=== PATIENT | male | born 1955 | race Caucasian/White ===

== ENCOUNTER 2017-10-25 06:08 | Inpatient (IN) ==
--- NOTE | 2017-10-24 21:18 | Discharge Summary ---
<Hubert Soares - Last Filed: 10/25/17 07:53> Orders not resulted at time of discharge: Pending orders 10/25/17 00:01 XR shoulder complete LT [XR] Routine H/H [Hemoglobin and Hematocrit] [HEME] Routine 10/25/17 07:32 US anesthesia pain block [US] Stat Date of Encounter: 10/25/17 - Discharge Diagnosis (1) Obesity (BMI 30.0-34.9) Priority: Secondary Status: Chronic (2) Rotator cuff arthropathy of left shoulder Priority: Primary Status: Chronic (3) Status post reverse total arthroplasty of left shoulder Priority: Primary Status: Acute (4) DMII (diabetes mellitus, type 2) Priority: Secondary Status: Chronic Qualifiers: Diabetes mellitus medical terminologist insulin use: unspecified correction insulin use status Diabetes mellitus complication status: with unspecified complications Qualified Code(s): E11.8 - Type 2 diabetes mellitus with unspecified complications (5) HTN (hypertension) Priority: Secondary Status: Chronic Qualifiers: Hypertension type: essential hypertension Qualified Code(s): I10 - Essential (primary) hypertension (6) Tobacco use Priority: Secondary Status: Chronic (7) Chronic pain Priority: Secondary Status: Chronic Qualifiers: Chronic pain type: other chronic pain Qualified Code(s): G89.29 - Other chronic pain - Hospital Course Hospital course: Mr. Romero is a 62 year old male - Time Spent with Patient Total time spent providing and/or coordinating discharge services: - Discharge Medications Home Medications: Aspirin [Lo-Dose Aspirin EC] 81 mg PO DAILY 10/25/17 [History] Clopidogrel [Plavix] 75 mg PO DAILY 10/25/17 [History] Gabapentin [Neurontin] 600 mg PO TID 10/25/17 [History] Insulin ASPART [NovoLOG] 22 unit SQ TIDWM 10/25/17 [History] Insulin Degludec [Tresiba Flextouch U-100] 60 unit SQ BID 10/25/17 [History] Lisinopril [Zestril] 20 mg PO DAILY 10/25/17 [History] Oxycodone HCl/Acetaminophen [Percocet 10-325 mg Tablet] 1 each PO Q6HR 10/25/17 [History] Zolpidem [Ambien] 5 mg PO HS 10/25/17 [History] Allergies/Adverse Reactions: 3 Allergy/AdvReac Type Severity Reaction Status Date / Time Iodinated Contrast- Oral and Allergy Anaphylaxis Verified 10/25/17 06:51 IV Dye ketorolac [From Toradol] AdvReac Hives Verified 10/25/17 06:51 Primary care physician: Courtney Castellanos MD - Patient Status Disposition: Home, Self-Care Condition: Good - Discharge Instructions Follow Up With: Courtney Castellanos MD [Primary Care Provider] - <Roxane Douglas Kala - Last Filed: 10/25/17 18:23> Date of Encounter: 10/25/17 Time of Encounter: 17:38 - Discharge Diagnosis (1) Rotator cuff arthropathy of left shoulder Priority: Primary Status: Chronic (2) Status post reverse total arthroplasty of left shoulder Priority: Primary Status: Acute (3) DMII (diabetes mellitus, type 2) Priority: Secondary Status: Chronic Qualifiers: Diabetes mellitus medical terminologist insulin use: unspecified medical terminologist insulin use status Diabetes mellitus complication status: with unspecified complications Qualified Code(s): E11.8 - Type 2 diabetes mellitus with unspecified complications (4) HTN (hypertension) Priority: Secondary Status: Chronic Qualifiers: Hypertension type: essential hypertension Qualified Code(s): I10 - Essential (primary) hypertension (5) Obesity Priority: Secondary Status: Chronic Qualifiers: Obesity type: unspecified obesity type Obesity classification: unspecified obesity classification Serious obesity comorbidity presence: without serious comorbidity Qualified Code(s): E66.9 - Obesity, unspecified (6) Tobacco use Priority: Secondary Status: Chronic (7) Chronic pain Priority: Secondary Status: Chronic Comments: Patient will resume chronic pain medication - Percocet QID Qualifiers: Chronic pain type: other chronic pain Qualified Code(s): G89.29 - Other chronic pain - Hospital Course Hospital course: Mr. Romero is a 62 year old male, s/p Left TSR-reverse, history of HTN, DMII, CAD , Obesity, Chronic pain and tobacco use. Patient doing well; with uneventful post-operative course. Stable for discharge. Afebrile, vital signs stable. Labs reviewed. H/H - stable, asymptomatic Pain control: adequate - continue chronic pain medication. Participating in PT. All questions and concerns addressed. Educated on use of incentive spirometer. Encouraged ambulation and proper hydration. Patient educated on post-operative restrictions and post-operative care. Assessment and plan: Continue with postoperative care Discharge plan: Home, discharge today - Time Spent with Patient Total time spent providing and/or coordinating discharge services: Date of admission: 10/25 Primary care physician: Courtney Castellanos MD
[2017-10-25] MEDS ORDERED: Bupivacaine/Clonidine Syringe 1 EACH SYRINGE ONE (06:50)
[2017-10-25] MEDS ORDERED: ROPIVACAINE HCL/PF 0.5% 30 ML VIAL ONE (06:50)
[2017-10-25] MEDS ORDERED: Albuterol 2.5 MG/3 ML NEBULIZER IH ONE (06:52)
[2017-10-25] MEDS ORDERED: CeFAZolin Syr 2,000MG/20 ML 2,000 MG/20 ML SYRINGE IVPB ONE (06:52)
[2017-10-25] MEDS ORDERED: Albuterol 2.5 MG/3 ML NEBULIZER ONE (06:53)
--- NOTE | 2017-10-25 06:54 | History & Physical Report ---
Date of Encounter: 10/25/17 Time of Encounter: 06:53 24 Hour HP Update - Instructions Instructions: If the History and Physical is less than 30 days old and was completed prior to A.M. admission and or procedure and has NOT been updated on calendar day of procedure please complete this update prior to performing procedure. - Update Patient reports changes in Medical Condition: No Changes in examination, assessment, or condition: No Changes in Medication: No Preop tests/diagnostics Reviewed: Yes Surgery Remains Indicated: Yes Consent for Planned Operative Procedure(s) Verified: Yes - Pre-Operative Checklist Preoperative Checklist Indicated: No Prophylactic Antibiotic Ordered: Yes Is VTE Prophylaxis Indicated?: Yes
[2017-10-25] MEDS ORDERED: Ringers Solution, Lactated 1,000 ML IVC SCH ×2 (07:00→09:41)
[2017-10-25] MEDS ORDERED: Famotidine 20 MG/2 ML VIAL IVP ONE (07:06)
[2017-10-25] MEDS ORDERED: Acetaminophen IV 1,000 MG/100 ML INFUS..BTL IVPB ONE (07:07)
[2017-10-25] MEDS ORDERED: Pregabalin 75 MG CAPSULE PO ONE (07:08)
--- NOTE | 2017-10-25 07:11 | Anesthesia Evaluation PreOp ---
Date of Encounter: 10/25/17 Time of Encounter: 07:00 - Past History Planned Operation: Left Total Shoulder Reverse Ball Cardiac History: [place] (2003), HTN, Hyperlipidemia, Cardiac Stent (2003) Pulmonary History: Smoker JOINT FILLER History: Denies Any Significant HX Other Medical History: Diabetes Type II (Accu check 154) Anesthesia History: No Prior Anesthetic Complications Alcohol Use: none Drug use: none Medications and Allergies Aspirin [Lo-Dose Aspirin EC] 81 mg PO DAILY 10/25/17 [History] Clopidogrel [Plavix] 75 mg PO DAILY 10/25/17 [History] Insulin ASPART [NovoLOG] unit SQ 10/25/17 [History] Insulin Degludec [Tresiba Flextouch U-100] 60 unit SQ DAILY 10/25/17 [History] Lisinopril [Zestril] 20 mg PO DAILY 10/25/17 [History] Oxycodone HCl/Acetaminophen [Percocet 10-325 mg Tablet] 1 each PO Q6HR 10/25/17 [History] Zolpidem [Ambien] 5 mg PO HS 10/25/17 [History] 3 Allergy/AdvReac Type Severity Reaction Status Date / Time Iodinated Contrast- Oral and Allergy Anaphylaxis Verified 10/25/17 06:51 IV Dye ketorolac [From Toradol] AdvReac Hives Verified 10/25/17 06:51 - Meds/Allergy Pre-op Review Medications Reviewed: Yes Allergies Reviewed: Yes Beta Blockers on Current Med List: No Anesthesia Results - Labs Hgb 15.2 Hct 43.9 Plt 243 Na 141 K 4.4 BUN 13 Creat 1.0 - Imaging EKG: report reviewed (SB) Additional studies: 2011 Heart Cath Normal EF Anesthesia Exam O2 Sat Height 1.78 m Height 1.78 m Height 1.78 m Weight 105.233 kg Weight 105.233 kg Weight 105.233 kg O2 Sat by Pulse Oximetry 97 Vital Signs Temp Pulse Resp BP Pulse Ox 97.9 F 57 18 138/86 97 10/25/17 06:28 10/25/17 06:28 10/25/17 06:28 10/25/17 06:28 10/25/17 06:28 Height: 5'10 Weight: 232 lbs NPO (# of Hours): MN Pain Scale: 2 - HEENT Pupil (Motor): Pupils equal, EOMI Mallampati: III Teeth: Edentulous Oral Opening: Less than or equal to 3 - JOINT FILLER LOC: Oriented JOINT FILLER Motor: Normal RUE, Normal LUE, Normal RLE, Normal LLE, Normal Face JOINT FILLER Sensory: Normal: RUE, LUE, RLE, LLE, Face - Cardiac Rhythm: Regular Murmur: None JVD: No Carotid Bruit: No - Pulmonary Breath Sounds: bilateral Clear Respiratory Effort: Symmetrical Anesthesia Assess/Plan ASA Score: 3 (CAD HTN Tobacco DM) Modified [place] Scale for Level of Consciousness: Cooperative, oriented, and tranquil Anesthetic Plan: General, Regional Monitoring Plan: Standard Monitors Recovery Plan: PACU (Discussed GA and RA, agrees to proceed)
[2017-10-25] MEDS ORDERED: Tetracaine/PF 20 MG/2 ML AMPUL ONE (07:18)
[2017-10-25] MEDS ORDERED: Lidocaine -MPF 2% 2 ML VIAL ONE (08:11)
[2017-10-25] MEDS ORDERED: *HR* Propofol 200 MG/20 ML VIAL IVP ONE (08:11)
[2017-10-25] MEDS ORDERED: Ondansetron 4 MG/2 ML VIAL ONE (08:11)
[2017-10-25] MEDS ORDERED: *HR* Midazolam HCl 2 MG/2 ML VIAL ONE (08:11)
[2017-10-25] MEDS ORDERED: *HR* FentaNYL (PF) 100 MCG/2 ML VIAL ONE (08:11)
[2017-10-25] MEDS ORDERED: *HR* Succinylcholine 200 MG/10 ML VIAL IVP ONE (08:11)
[2017-10-25] MEDS ORDERED: Lidocaine -MPF 4% 5 ML AMPUL ONE (08:11)
[2017-10-25] MEDS ORDERED: *HR* Rocuronium Bromide 50 MG/5 ML VIAL ONE (08:11)
--- NOTE | 2017-10-25 08:19 | Anesthesia Procedures ---
Date of Encounter: 10/25/17 Time of Encounter: 07:10 Procedures: Anesthesia - Nerve Block Procedure Date: 10/25/17 Time: 07:30 Pre-op Diagnosis: Arthropathy Left Shoulder Surgical Procedure: Shoulder Replacement Checklist: Correct Patient Identifier Correct side: Left Blood Thinner: No Supplemental Oxygen via Nasal Cannula (L/min): 2 Sedation: Versed (mg): 2 Sedation: Fentanyl (mcg): 50 Indication: Post Op Analgesia Pre-op Neuro Deficits: No Block Type: Supraclavicular Catheter placed: No Depth at skin (cm): 3 Sterile Technique: Yes Ultrasound used: Yes Anatomy identified: Yes Visual spread of Local: Yes Neuro Stimulation: No Blood on Needle Aspiration: No Smooth Injection of Local: Yes Pain with Injection of Local: No Prep: Chlorhexadine Needle: 22 x 50 mm Stimuplex Local: 0.25% Bupivicaine w/Clonidine 20 mcg/cc, Tetracaine (20), Ropivacaine Volume (cc): 30 Number of Attempts: 1 Complications: None/effective block Vitals: Vital Signs/O2 Sat/Glucose, Most Current Temp Pulse Resp BP Pulse Ox 10/25/17 07:38 59 16 146/89 94 10/25/17 07:33 58 18 151/79 96 10/25/17 06:28 97.9 F 57 18 138/86 97
[2017-10-25] MEDS ORDERED: *HR* OxyCODONE Immed Rel 5 MG TABLET PO PRN ×2 (08:20→09:41)
[2017-10-25] MEDS ORDERED: *HR* HYDROmorphone 2 MG TABLET PO PRN (08:20)
[2017-10-25] MEDS ORDERED: EPHEDrine 50 MG/ML VIAL ONE (08:23)
--- NOTE | 2017-10-25 08:38 | Orthopedic Operative Note ---
Date of procedure: 10/25/17 Pre-op diagnosis: Left shoulder cuff tear arthropathy Post-op diagnosis: same Procedure: Procedure: Total Shoulder Replacment Reverse, left Estimated blood loss: 100 cc Hardware: Metal and polyethylene replacement: Arthrex large glenoid baseplate, 2 4.5 screws. 1 6.5 screw, 42+4 glenosphere, 13 humeral stem, poly insert 3 and 6 metal Exam Under anesthesia: Full motion no instability Procedural Notes: Irreparable tear supraspinatus tendon Operative procedure: The patient was brought to the operating room and placed on the operating room table. After general anesthesia was administered the operative shoulder was examined. Findings were noted. The patient was placed in the modified beachchair position. All pressure points were padded appropriately. And the head was stabilized in the neutral position. The operative extremity was prepped and draped in the sterile surgical fashion. The patient received IV antibiotics prior to skin incision. A standard deltopectoral approach was made to the operative shoulder. Incision was made to the skin and subcutaneous tissue,hemo stasis was obtained with Bovie cautery. Using careful blunt dissection the cephalic vein was identified and mobilized medially. The deltopectoral interval was developed and the clavipectoral fascia was incised. The subscap was released off the lesser tuberosity and tagged with #2 FiberWire suture subscap was irreparable. The humerus was dislocated patient noted to have irreparable tear supraspinatus tendon, and the humeral cut was made along the anatomic neck. Anterior and posterior Bankart retractors were placed to expose the glenoid. The glenoid guide was seated and the centering hole was made. It was reamed with the appropriate reamer. The large baseplate was seated and secured with (2) 4.5 screws and one 6.5 screw. The baseplate was irrigated and dried and the 42+4 Glenosphere was seated and secured with the Esquivel taper. The Esquivel taper was tested and found to be secure the humerus was redislocated and prepared with the diaphyseal reamers, followed by a broaching process up to the appropriate size 13 in the patient's anatomic version. The metaphyseal reamer was then utilized. Trial reduction found the shoulder to be relocatable. Trial components were removed and the 13 stem was impacted in place in the patient's anatomic version. Trial reduction found the shoulder to be relocatable and stable with the appropriate 6 metal 3 Maxine Trial component was removed and the real implants was seated and secured the shoulder was reduced. The shoulder had excellent motion and excellent stability and no evidence of dislocation. The deep tissue was irrigated with pulse irrigation. The PA close the shoulder. The deltopectoral interval was closed with a running #1 PDS suture, subcutaneous tissue was irrigated and closed with 0 PDS suture, the skin was closed with Dermabond. The patient was placed in a sterile dressing, abduction brace and extubated. The patient was then transferred to the recovery room in stable condition. Anesthesia: GETA Surgeon: Hubert Soares Was there an zoning assistant present: Yes Client Services Vice President: Roxane Douglas Estimated blood loss (cc): 100 Condition: stable Disposition: PACU
--- NOTE | 2017-10-25 09:30 | Anesthesia Evaluation Post Op ---
Date of Encounter: 10/25/17 Time of Encounter: 09:30 - Vital Signs Vital Signs: Vital Signs/O2 Sat/Glucose, Most Current Temp Pulse Resp BP Pulse Ox 10/25/17 09:23 98.0 F 58 18 143/80 97 10/25/17 09:16 60 18 136/75 97 10/25/17 09:06 64 18 139/83 93 10/25/17 08:56 97.9 F 68 20 161/82 94 10/25/17 07:38 59 16 146/89 94 10/25/17 07:33 58 18 151/79 96 10/25/17 06:28 97.9 F 57 18 138/86 97 - Lungs Lungs: Clear Ascult./Percussion - Airway Airway: Non-obstructed - Cardiovascular Regular Rate - Mental Status Mental Status: Alert & Oriented, Answers Appropriately - Pain Pain Scale: 0 - Nausea Vomiting Nausea Vomiting: Not Present - Hydration Hydration: NPO - Discharge PostOp Status: Transfer Patient to floor
[2017-10-25] MEDS ORDERED: TRESIBA U SQ SCH (09:41)
[2017-10-25] MEDS ORDERED: *HR* Dextrose 50 % in Water (Syg) 50 ML SYRINGE IVP PRN (09:41)
[2017-10-25] MEDS ORDERED: Temazepam 15 MG CAPSULE PO PRN (09:41)
[2017-10-25] MEDS ORDERED: traMADol 50 MG TABLET PO PRN (09:41)
[2017-10-25] MEDS ORDERED: Ondansetron 4 MG/2 ML VIAL IVP PRN (09:41)
[2017-10-25] MEDS ORDERED: *HR* OxyCODONE/APAP 5/325 TABLET PO PRN (09:41)
[2017-10-25] MEDS ORDERED: Dextrose Gel 15 GM/37.5 ML TUBE PO PRN ×2 (09:41)
[2017-10-25] MEDS ORDERED: Sennosides 8.6 MG TABLET PO PRN (09:41)
[2017-10-25] MEDS ORDERED: Aspirin Enteric Coated 81 MG Tablet PO SCH (09:41)
[2017-10-25] MEDS ORDERED: D5% in Water 1,000 ML IVC PRN (09:41)
[2017-10-25] MEDS ORDERED: Lisinopril 20 MG TABLET PO SCH (09:41)
[2017-10-25] MEDS ORDERED: MOM Conc 10 ML UD.LIQ PO PRN (09:41)
[2017-10-25] MEDS ORDERED: Naloxone 0.4 MG/ML INJ IVP PRN (09:41)
[2017-10-25 10:08] LABS: Hematocrit 41.1 % (37.5-50.1); Hemoglobin 14.6 g/dL (12.9-16.9)
[2017-10-25 12:15] VITALS: BP 145/92
[2017-10-25] MEDS: Insulin LISPRO 300 UNITS/3 ML VIAL SQ SCH ×2 (12:46→15:36)
[2017-10-25] MEDS ORDERED: *HR* Enoxaparin 30 MG/0.3 ML SYRINGE SQ SCH ×2 (14:30→18:00)
[2017-10-25] MEDS ORDERED: Insulin LISPRO 300 UNITS/3 ML VIAL SQ SCH (21:00)
== END 2017-10-25 15:59 | disposition home or self-care (01) | DRG 483 ==
LOC: SAMDAY 06:08 → 3NENU 09:50
PROVIDERS: ADMIT Orthopaedic Surgery; ATTEND Orthopaedic Surgery